=== PATIENT | female | born 1990 | race Caucasian/White ===

== ENCOUNTER 2019-03-15 16:49 | Inpatient (IN) | payer BC ==
[~2019-03-15] VITALS: Ht 167.6 cm; Wt 103.2 kg
[2019-03-15] VITALS (30 sets, daily range): BP systolic 120–182; BP diastolic 75–108; PULSE 63–92; TEMP 97.9–98.8
--- NOTE | 2019-03-15 16:55 | NUR ---
G1L0 40.[address] Choi ambulatory to LR 5 from office for CBC, CMP, Clean Catch, and serial BP's. Reports good movement. Denies LOF, Vaginal bleeding or Contractions. 1658-Placed on EFM. Reactive FHR. Assessment complete. 1756-Notified Dr. Romano of Patients Lab results and reviewed BP's with MD. Orders recieved to admit patient. 1809-IV to Left hand. LR infusing per MD orders. 1815- Pitocin started Per MD orders. Reported off to ASIF Becker.
[2019-03-15 17:23] LABS: COLLECTION METHOD CLEAN CATCH
[2019-03-15] MEDS ORDERED: SLOW FE142 MG PO (17:25)
[2019-03-15] MEDS ORDERED: PRENATAL (17:25)
[2019-03-15 17:35] LABS: ALBUMIN 3.3 gm/dL (3.5-5.0); BILIRUBIN,TOTAL 0.5 mg/dL (0.0-1.0); CALCIUM 8.8 mg/dL (8.4-10.2); CREATININE, serum 0.42 (0.52-1.25); POTASSIUM 3.2 mmol/L (3.4-5.0); TOTAL PROTEIN 6.1 gm/dL (6.4-8.2)
[2019-03-15 17:37] LABS: BASO % 0.3 % (0.0-2.0); EOS # 0.1 (0.0-0.7); EOS % 0.5 % (0-4.0); GRAN # 8.7 (1.4-6.5); GRAN % 75.6 % (42.2-75.2); HEMATOCRIT 37.5 % (37.0-47.0); HEMOGLOBIN 12.8 g/dl (12.5-16.0); LYMPH # 1.8 (1.2-3.4); LYMPH % 15.2 % (20.0-51.0); MEAN CELL VOLUME 89 fl (80.0-100.0); MEAN CORPUSCULAR HEMOGLOBIN 30 pg (27.0-31.0); MEAN CORPUSCULAR HGB CONC 34 g/dl (33.0-37.0); MEAN PLATELET VOLUME 11.8 fl (7.4-10.4); MONO # 0.9 (0.1-0.6); MONO % 7.7 % (1.7-9.3); PLATELET COUNT 198 K/mm3 (130-400); RED BLOOD COUNT 4.23 M/mm3 (4.10-5.30); REDCELL DISTRIBUTION WIDTH-CV 14.5 % (11.5-14.5)
[2019-03-15 17:42] LABS: PH 7 (5-8); SQUAMOUS EPITHELIAL 0-2 /hpf; URINE APPEARANCE Clear; URINE BACTERIA None Seen /hpf; URINE BILIRUBIN Negative (NEGATIVE); URINE BLOOD 2+ (NEGATIVE); URINE COLOR Yellow; URINE GLUCOSE Negative (NEGATIVE); URINE KETONE Negative (NEGATIVE); URINE LEUKOCYTE ESTERASE Negative (NEGATIVE); URINE NITRATE Negative (NEGATIVE); URINE PROTEIN(semi-quant) Negative (NEGATIVE); URINE RBC 0-2 /hpf; URINE UROBILINOGEN Negative (NEGATIVE); URINE WBC 0-2 /hpf
--- NOTE | 2019-03-15 18:20 | NUR ---
Report received from Randa RN. Pt talking on phone. Denies needing anything at this time. 1952: updated on pts status and BP's. Orders received. See physican notification. 2000: Labetalol educated and administered at this time. See eMAR. Will continue to monitor. 2029: Pt off monitors to use restroom. 2032: Monitors reapplied and pt sitting on EOB. Difficulty tracing FHR due to maternal position. Monitors adjusted and will continue to monitor.
--- NOTE | 2019-03-15 21:20 | NUR ---
2119: at nurses station reviewing FHR strip and update on pt given. 2125: at pts bedside. SVE unchanged. New orders received. bedside sono completed, vertex presentaion noted. 2147: PO labetalol explained and administered. Plan of care explained to pt and who verbalize understanding. Call light within reach.
--- NOTE | 2019-03-15 23:00 | NUR ---
[id number]: Difficulty tracing FHR due to maternal position. RN at bedside adjusting monitors. Audible FHR noted 140's bpm. 2316: Pt up to bathroom and monitors removed.
[2019-03-16] VITALS (49 sets, daily range): BP systolic 126–202; BP diastolic 63–101; PULSE 63–96; TEMP 97.4–99.1
--- NOTE | 2019-03-16 02:15 | NUR ---
DIFFICULTY TRACING FHT'S AND CONTRACTION PATTERN DUE TO MATERNAL POSITION. TOCO AND US ADJUSTED.
--- NOTE | 2019-03-16 03:15 | NUR ---
DIFFICULTY TRACING CONTRACTIONS DUE TO MATERNAL POSITION IN LEFT LATERAL, TOCO ADJUSTED.
--- NOTE | 2019-03-16 03:30 | NUR ---
CONTINUE TO HAVE DIFFICULTY TRACING CONTRACTIONS DUE TO MATERNAL POSITION, TOCO ADJUSTED.
--- NOTE | 2019-03-16 04:00 | NUR ---
PT BEGINNING TO HAVE DISCOMFORT WITH CONTRACTIONS. DIFFICULTY TRACING FHT'S DUE TO MATERNAL POSITION AND MOVEMENT.
--- NOTE | 2019-03-16 04:15 | NUR ---
PT UP TO BATHROOM AT THIS TIME.
--- NOTE | 2019-03-16 04:45 | NUR ---
0445: at nurses station reviewing FHR strip. Update on pts pain given to provider. Orders for labetalol given. 0450: Labetalol administered per orders. Pt breathing through contractions and states she is feeling more pressure. SVE /-2. at nurses station and updated on SVE. 0541: at bedside. 0543: AROM explained per provider and completed at this time with clear fluid noted by . SVE /-1. Plan of care explained to pt. 0615: Report given to Stephanie GOLD.
--- NOTE | 2019-03-16 10:50 | NUR ---
Dr. Romano at bedside. Begins pushing with pt. 1123- of viable female attended by Dr. Romano. Cord clamped x cut. cut from umbilicus. dried and placed on mother's abdomen. Care of infant to Misha Erickson RN. Apgars . 1126- of placenta. Pitocin bolus infusing per protocol. Fundus firm at umbilicus. Bleeding WNL. Second degree laceration repair performed by Dr. Romano. Pericare performed. Ice pack applied. Pt updated on POC. Safety reviewed. Bed locked in low position. Call light within reach. No questions or concerns at this time.
[2019-03-17 00:40] VITALS: BP 152/91; PULSE 88
[2019-03-17 05:15] VITALS: BP 132/82; PULSE 88
[2019-03-17 07:15] VITALS: BP 137/97; PULSE 85; TEMP 97.9
[2019-03-17 07:47] LABS: HEMOGLOBIN 11.1 g/dl (12.5-16.0)
[2019-03-17 07:49] LABS: HEMATOCRIT 32.3 % (37.0-47.0)
[2019-03-17] MEDS ORDERED: IBU600 MG PO (08:45)
[2019-03-17 10:58] VITALS: BP 141/88; PULSE 91; TEMP 98
--- NOTE | 2019-03-17 14:30 | NUR ---
Assumed care of patient. Rests in bed, alert, . Denies any needs at this time.
[2019-03-17 17:30] VITALS: BP 130/92; PULSE 77; TEMP 98
[2019-03-17 21:00] VITALS: BP 153/87; PULSE 83; TEMP 97.7
[2019-03-18 05:00] VITALS: BP 146/84; PULSE 71; TEMP 98.5
[2019-03-18 08:30] VITALS: BP 138/88; PULSE 75; TEMP 97.8
--- NOTE | 2019-03-18 11:39 | NUR ---
Initial visit; Patient indisposed, Admissions Manager Rn offered congratulations to both her and her for the of their daughter. stated he would share the blessing with his family.
== END 2019-03-18 11:15 | disposition home or self-care (01) | DRG 807 ==
LOC: LDRO 16:49 → LDR 16:49 → LDRO 18:03 → OB 03-16 13:30
PROVIDERS: ADMIT Obstetrics & Gynecology
PROC: 10907ZC Drainage of Amniotic Fluid, Therapeutic from Products of Conception, Via Natural or Artificial Opening (ICD-10-PCS; principal; 2019-03-16)
PROC: 10E0XZZ Delivery of Products of Conception, External Approach (ICD-10-PCS; 2019-03-16)
PROC: 0KQM0ZZ Repair Perineum Muscle, Open Approach (ICD-10-PCS; 2019-03-16)
DX: O13.4 Gestational [pregnancy-induced] hypertension without significant proteinuria, complicating childbirth (principal); Z37.0 Single live birth; O99.02 Anemia complicating childbirth; D64.9 Anemia, unspecified; O99.62 Diseases of the digestive system complicating childbirth; K58.9 Irritable bowel syndrome, unspecified; O77.0 Labor and delivery complicated by meconium in amniotic fluid; Z3A.40 40 weeks gestation of pregnancy; O70.1 Second degree perineal laceration during delivery
CPT/HCPCS: J2590; J7120

== ENCOUNTER → 2019-04-02 | Outpatient (CLI) | payer BC ==
[~2019-04-02] MED LIST: IBU600 MG PO; PRENATAL; SLOW FE142 MG PO
--- NOTE | 2019-04-02 16:27 | NUR ---
Pt, Jesu Palmer, presents to walk-in clinic with 17 day old baby girl, Jose Palmer for a evaluation because Jose is not gaining weight as expected. Jose was born via on [birth year] and weighed 8#1.1oz (3660 gms). She was seen at the doctor about 5 days of age and weighed 7#8oz. Because Jesu did not feel Jose was filling out well she had her weighed yesterday at the doctor's office and her weight was 7#9oz. Pt states Jose nurses every 2-3 hours with cluster feeds in the evening. She eventually mentions that last noc Jose slept for 4-5 hours. Pt advised she should wake Jose up at 3 hours to ensure minimum of 8 feedings per 24 hours. Today Jose weighs 7#9.1oz. Pt starts her on the left with a nipple shield. LC suggests she try nursing without it. Jose seems to latch well, but the nipple is angular after nursing. Jose had a weight gain of 18gms after nursing the left side. She nurses the right without the nipple shield and has a weight gain of 52gms. Total weight gain from is 70 gms(2.4oz). Because Jose is below weight and is not demonstrating an adequate gain, pt is advised Jose needs to drink up to 4oz per feeding, at least 8 times per day, in order to catch up with where she should be. Pt states she feels she has an adequate milk volume, is more concerned that the nutritional value is low. Discussed her diet, and that milk supply was likely lower than she expects. Pt accepting of formula, choosing bottle over SNS. Pt is instructed on bottle feeding. Jose takes about 30 ml then spits up a good bit, even through her nose, but post feed weight indicates she still had a 24gm gain after the bottle feeding. POC: 3-step feeding plan; Breast each feeding, supplement 1-2oz EBM or formula, pump bilaterally for 10-15 min. Save EBM for supplement. Pt advised to track feedings, supplement and amounts of EBM. F/U: Walk-in clinic next week, by phone prior with any questions or clarification of plan as needed. Questions invited and answered.
== END ==
LOC: OLC 11:13
DX: Z39.1 Encounter for care and examination of lactating mother (principal); Z71.89 Other specified counseling

== ENCOUNTER → 2019-04-09 | Outpatient (CLI) | payer BC ==
--- NOTE | 2019-04-09 11:53 | NUR ---
Jesu into clinic with 3.5 week old Jose for weight check and evaluation in follow up to last week's clinic visit. Jose was born on [birth year] via and weighed 8# 1.1 oz (3660 gms). Last week, at 2.5 weeks of age, her prefeed weight was noted as 7# 9.1 oz. Due to still being below weight, low gain, and low milk supply Jesu started using the 3-step feeding method of breast feeding/pumping/supplementing with formula with each feeding. Jesu states she has been using the 3-step method over the last week, feeding/pumping on average of 8 times per day and supplementing 1-2 oz Parent's Choice formula after each session. Jesu reports diapers to be sufficient. Jesu states she gets anywhere from drips to 45 mls with pumping sessions after . Today's prefeed weight is noted as 8# 6.9 oz (3824 gms), a gain of 13.8 oz from last week. While in the clinic Jose nursed approx 15 min per side with a gain of 18 mls from the left breast and 28 mls from the right breast. Suggestions offered on position by this LC. Good latch noted. Verbal education provided on herbal supplements that may help increase milk supply and formula storage/usage. POC: Continue to feed ad estella, atleast 8 times per day. Decrease supplementation to 1 oz formula or EBM per feeding. Power pump 1-2 times per day rather than pumping after each feeding. Questions invited and answered. Understanding verbalized. Anticipate return to clinic next week.
== END ==
LOC: OLC 10:08
DX: Z39.1 Encounter for care and examination of lactating mother (principal); Z71.89 Other specified counseling

== ENCOUNTER → 2019-04-16 | Outpatient (CLI) | payer BC ==
--- NOTE | 2019-04-16 11:10 | NUR ---
Ignaciodalton into the clinic with one month old Jose for weight check and evaluation. Jose was born on [birth year] with a weight of 8# 1.1 oz (3660 gms). Last week's prefeed weight was noted as 8#6.9 oz (3824 gms), a gain of 13.8 oz from the previous week. Today's prefeed weight was noted as 8# 12 oz (3970 gms), a gain of 5.2 oz in the last week. Jesu states Jose is nursing 7-8 times per day and taking a 1-2 oz bottle of formula after each feeding. Jesu reports diapers to be WNL. Jesu has been power pumping 2 x per day, but states she is only expressing "drops". While in clinic, Jose nursed bilaterally with a gain of 22 gms from the left breast and 44 gms from the right with a total of 66 gms or 2.4 oz. POC: Continue to feed at least 8 times per day, supplementing 1-2 oz after feeds, add a night feeding session so Jose is not going more than 4 hours at night without nursing. Continue to power pump 2 times per day or pump after BF'ing to help increase supply. Return to clinic next week for weight check.
== END ==
LOC: LAC 10:17
DX: Z39.1 Encounter for care and examination of lactating mother (principal); Z71.89 Other specified counseling

== ENCOUNTER → 2019-04-23 | Outpatient (CLI) | payer BC ==
--- NOTE | 2019-04-23 12:39 | NUR ---
Pt, Jesu Palmer, into walk in clinic with 5 week old Jose for weight check and evaluation of milk transfer. Jesu and Jose have been in for the last several weeks, please see previous notes. Jesu was born on [birth year] with a weight of 8# 1.1 oz (3660 g). has been complicated due to low milk supply and low weight gain. For the last few weeks, Jesu has been using the 3-step feeding method of putting to breast, offering supplemental bottle, then pumping to improve milk supply and Jose's weight gain. Over the last week, Jesu states Jose has been nursing approx. 8 times per day and has been taking 3 bottles of 1-2 oz formula. She continues to pump after each breast feeding session and power pump once per day, but states she gets "hardly anything." Today's Jose's prefeed weight was noted as 9# 7 oz (4296 gms), a gain of 11.5 oz since last week. While in clinic, Jose nursed bilaterally and had a total gain of 2.85 gms. She then took 2 oz formula via bottle. POC: Continue to feed ad estella, try decreasing supplemental feedings based on quality of breast feeding sessions and Jose's cues. Continue to pump to help increase milk supply. Questions invited and answered. Understanding verbalized.
== END ==
LOC: OLC 10:51
DX: Z39.1 Encounter for care and examination of lactating mother (principal); Z71.89 Other specified counseling

== ENCOUNTER → 2019-05-14 | Outpatient (CLI) | payer BC ==
--- NOTE | 2019-05-14 15:00 | NUR ---
Jesu Palmer presents to outpatient walk-in clinic with 8 week old baby girl, Jose Palmer, for a weight check. They were attending weekly, until Jesu had to return to work. Today Jose weighs 10#11.4oz (4858 gms), for a gain of 20oz over the last 21 days. 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 She is able to pump 3 times while at work and reports collecting 5oz over the course of the work day. POC: Continue and supplementing as needed. Questions invited and answered.
== END ==
LOC: LAC 14:31
DX: Z39.1 Encounter for care and examination of lactating mother (principal); Z71.89 Other specified counseling

== ENCOUNTER → 2020-07-07 | Outpatient (CLI) | payer BC ==
[~2020-07-07] MED LIST changes: +PERCOCET 325 MG1 TA2 PO
== END | disposition still patient (30) ==
LOC: ZCOL.LAB 08:00
DX: Z20.828 Contact with and (suspected) exposure to other viral communicable diseases (principal)

== ENCOUNTER 2020-07-10 07:20 | Inpatient (IN) | payer BC ==
[~2020-07-10] VITALS: Ht 170.2 cm; Wt 92.7 kg
[2020-07-10] VITALS (56 sets, daily range): BP systolic 90–154; BP diastolic 54–106; PULSE 66–107; TEMP 97.6–98.8
[~2020-07-10 07:20] MED LIST changes: -PERCOCET 325 MG1 TA2 PO
--- NOTE | 2020-07-10 07:30 | NUR ---
Patient ambulatory to LR6 with spouse, changed into gown, FHR/TOCO monitors placed and explained. Patient denies any regular contractions/leaking of fluid/vaginal bleeding/decreased movement. Plan of care discussed. Assessment completed/consents signed/ packet given. 0750: IV started in left hand, blood obtained and to lab, LR infusing. 0816: Pitocin induction discussed and patient agrees with plan. Pitocin started at 2mU/hr. 0845: Dr Romano at bedside and SONO done at this time, vertex position confirmed, SVE-1/50/-3 and attempts to AROM. 0900: Patient states she feels fluid like her water is broke. Clear fluid noted at this time. 1050: FHR baseline 135bpm and subtle late decelerations noted. Patient repositioned. 1110: Dr. Romano at bedside assessing patient and FHR strip. SVE per physician 3/60/-3. 1245: SVE- 3-4/70/-3 and patient requesting epidural. Jaelyn Arevaol CRNA notified. 1311: Patient off monitor to void. 1338: Patient sat up for epidural and Jaelyn Arevalo CRNA at bedside. Difficulty tracing FHR due to maternal position. 1339: Single dose given and patient tolerates well. 1340: Test dose given and patient tolerates well. 1348: Patient repositioned and plan of care/safety precautions discussed.
[2020-07-10 08:17] LABS: BASO % 0.3 % (0.0-2.0); EOS # 0.1 (0.0-0.7); EOS % 0.6 % (0-4.0); GRAN # 8.5 (1.4-6.5); GRAN % 75.5 % (42.2-75.2); HEMOGLOBIN 13.1 g/dl (12.5-16.0); LYMPH # 1.9 (1.2-3.4); LYMPH % 16.7 % (20.0-51.0); MEAN CELL VOLUME 90 fl (80.0-100.0); MEAN CORPUSCULAR HEMOGLOBIN 31 pg (27.0-31.0); MEAN CORPUSCULAR HGB CONC 35 g/dl (33.0-37.0); MEAN PLATELET VOLUME 12.1 fl (7.4-10.4); MONO # 0.7 (0.1-0.6); MONO % 6.3 % (1.7-9.3); PLATELET COUNT 194 K/mm3 (130-400); RED BLOOD COUNT 4.22 M/mm3 (4.10-5.30); REDCELL DISTRIBUTION WIDTH-CV 13.5 % (11.5-14.5)
--- NOTE | 2020-07-10 14:15 | NUR ---
Lacy Catheter placed and patient tolerates well. Patient left lateral and right leg resting in stirrup. 1445: Recurrent early decelerations noted. Patient right lateral with left leg resting in stirrup. 1620: FHR tracing recurrent early decelerations with minimal variability and Dr. Romano notified. Patient repositioned. 1702: SVE 6-7/[address]/-[address] Romano updated and no new orders given. Patient updated on plan of care.
--- NOTE | 2020-07-10 19:25 | NUR ---
1924- DR. PATEL ON UNIT TO EVALUATE PT. 1927- DR. PATEL AND THIS RN TO BEDSIDE FOR SVE AND EVALUATION. 1929- PER DR. CHRISTIANSON SVE HE DID AGREE THAT HE COULD FEEL SOME FACIAL PRESENTATION UPON EVALUATION. DISCUSSED GOING TO A FOR SAFETY MEASURE WITH PATIENT DURING THIS TIME. 1934- PITOCIN TURNED OFF PER VERBAL ORDER WE ARE PLANNING ON GOING BACK TO SECTION. PT AND ROOM PREPPED FOR CESEAREAN, STAFF NOTIFIED. 1947- PT. DISCONNECCTED FROM MONITORS AND WHEELED BACK TO OR.
--- NOTE | 2020-07-10 19:26 | NUR ---
1899- THIS RN TO TO BEDSIDE TO REPOSITION PT. TO [facility] FROM [facility]. FHR DECELERATION NOTED AND NOT ABLE TO KEEP BABY ON THE MONITOR VERY WELL. CHANGED POSITION TO RL AND SVE WAS /-1 BUT POSSIBLE FACIAL FEATURES DETECTED ON SVE. CALLED [employer] WHO CAME AND RECHECK. SHE WENT AND GOT SRI WHO ALSO RECHECK AND THEY ALSO THOUGHT THERE WERE POSSIBLE FACIAL FEATURES FELT. CALLED AMANDA AND HE IS ON HIS WAY TO EVALUATE
[2020-07-11 00:35] VITALS: BP 139/86; PULSE 77; TEMP 98
[2020-07-11 03:30] VITALS: BP 132/87; PULSE 74; TEMP 97.9
[2020-07-11 06:49] LABS: HEMOGLOBIN 12.1 g/dl (12.5-16.0)
[2020-07-11 06:54] LABS: HEMATOCRIT 36.4 % (37.0-47.0)
[2020-07-11 08:05] VITALS: BP 132/84; PULSE 74; TEMP 98.4
[2020-07-11] MEDS ORDERED: PERCOCET 325 MG1 TA2 PO (09:47)
[2020-07-11] MEDS ORDERED: IBU600 MG PO (09:47)
[2020-07-11 11:30] VITALS: BP 116/66; PULSE 78; TEMP 98.2
[2020-07-11 16:06] VITALS: BP 135/81; PULSE 80; TEMP 97.9
[2020-07-11 20:30] VITALS: BP 120/80; PULSE 80; TEMP 97.5
[2020-07-12 08:11] VITALS: BP 125/83; PULSE 75; TEMP 99
== END 2020-07-12 14:10 | disposition home or self-care (01) | DRG 788 ==
LOC: LDR 07:20 → OB 16:40
PROVIDERS: ADMIT Obstetrics & Gynecology
PROC: 10D00Z1 Extraction of Products of Conception, Low, Open Approach (ICD-10-PCS; principal; 2020-07-10)
DX: O32.3XX0 Maternal care for face, brow and chin presentation, not applicable or unspecified (principal); O69.81X0 Labor and delivery complicated by cord around neck, without compression, not applicable or unspecified; Z37.0 Single live birth; O34.03 Maternal care for unspecified congenital malformation of uterus, third trimester; K58.9 Irritable bowel syndrome, unspecified; O99.62 Diseases of the digestive system complicating childbirth; Q51.810 Arcuate uterus; Z3A.40 40 weeks gestation of pregnancy; Z88.0 Allergy status to penicillin
CPT/HCPCS: J0690; J1100; J1885; J2405; J2590; J2795; J3010; J7120